=== PATIENT | female | born 1990 | race African-American/Black ===

== ENCOUNTER 2017-04-18 18:58 | Emergency (ER) | payer MEDICAID, OTHER ==
[~2017-04-18] VITALS: Ht 165.1 cm; Wt 88.7 kg
[2017-04-18 21:26] VITALS: BP 132/91
== END 2017-04-18 23:28 | disposition home or self-care (01) ==
LOC: ER 18:58
DX: J02.9 Acute pharyngitis, unspecified (principal); R09.81 Nasal congestion; Z88.0 Allergy status to penicillin
CPT/HCPCS: 99283